=== PATIENT | female | born 1965 | race Caucasian/White ===

== ENCOUNTER → 2018-08-14 | Outpatient (CLI) | payer BC ==
--- NOTE | 2018-08-14 17:45 | PCVCIMAG ---
EXAM: NONINVASIVE ARTERIAL EXAMINATION OF BOTH LOWER EXTREMITIES INCLUDING PRE AND POST EXERCISE PRESSURE MEASUREMENTS AND DOPPLER WAVEFORMS INDICATION: Peripheral Arterial Disease. Leg pain. FINDINGS: Right Brachial: 115 mm Hg. Right Dorsalis Pedis: 117 mm Hg. Right Posterior Tibial: 135 mm Hg. Right MIRELA = 1.17. Left Brachial: 113 mm Hg. Left Dorsalis Pedis: 120 mm Hg. Left Posterior Tibial: 122 mm Hg. Left MIRELA = 1.06. Post Exercise: Right Brachial 123 mm Hg. Right Posterior Tibial: 140 mm Hg. Left Posterior Tibial: 133 mm Hg. Right MIRELA = 1.14. Left MIRELA = 1.08. IMPRESSION: No resting ischemia in the right lower extremity. No exercise induced ischemia in the right lower extremity. No resting ischemia in the left lower extremity. No exercise induced ischemia in the left lower extremity. LOC:[id number]
--- NOTE | 2018-08-14 17:46 | PCVCIMAG ---
EXAM: BILATERAL LOWER EXTREMITY ARTERIAL DUPLEX INDICATION: Peripheral Arterial Disease. Leg pain. FINDINGS: Right Leg: Satisfactory arterial waveforms throughout the common/profunda/superficial femoral, popliteal, anterior tibial, peroneal, and posterior tibial arteries. No flow limiting stenosis seen. Left Leg: Satisfactory arterial waveforms throughout the common/profunda/superficial femoral, popliteal, anterior tibial, peroneal, and posterior tibial arteries. No flow limiting stenosis seen. IMPRESSION: No flow limiting stenosis in the right lower extremity. No flow limiting stenosis in the left lower extremity. LOC:[id number]
--- NOTE | 2018-08-15 20:27 | PCVCIMAG ---
APPROVED REPORT Study performed: 08/14/2018 16:07:13 Exam: Stress Echocardiogram Indication: Dyspnea , Hyperlipidemia Patient Location: Echo lab Stress Nurse: Inés Curry RN Status: routine Ht: 5 ft 6 in HR: 77 bpm BP: 104/64 mmHg Rhythm: NSR Medical History Medical History: Hyperlipidemia Procedure The patient underwent an Exercise Stress Test using the Brady Protocol. Blood pressure, heart rate, and EKG were monitored. An Echocardiogram was performed by rvda master certified rv technician in four stages in quad fashion. At peak stress, four selected images were obtained and placed side by side with resting images for comparison. Stress Test Details Stress Test: Exercise stress testing was performed using a Brady protocol. HR Resting HR: 77 bpmMax Heart Rate (APMHR): 165 bpm Max HR Achieved: 162 bpmTarget HR (85% APMHR): 140 bpm % of APMHR: 98 Recovery HR: 89 bpm HR response to stress: Normal HR response to stress BP Resting BP: 104/64 mmHg Max BP: 150/70 mmHg Recovery BP: 132/62 mmHg BP response to stress: Normal blood pressure response to stress. ECG Resting ECG: Sinus Rhythm Stress ECG: Sinus Rhythm Recovery ECG: Sinus Rhythm Clinical Reason for Termination: Maximal effort Exercise duration: 6 min 38 sec Highest Stage Achieved: Stage 3: 3.4 mph at 14% grade. Exercise capacity: 8.90 METs Overall Exercise Capacity for Age: Normal Stress ECG Conclusion 1. subjectively negative for ischemia 2. electrocardiographically negative for ischemia 3. reduced functional capacity Pre-Stress Echo The resting Echocardiogram showed normal left ventricular contractility with an estimated Ejection Fraction of about 55-60%. Normal wall motion in all segments on baseline images. Post-Stress Echo The stress Echocardiogram showed normal left ventricular contractility with an estimated Ejection Fraction of about 60-65%. Normal augmentation of wall motion in all segments on post stress images. Clinical No clinical or ECG evidence for ischemia. Conclusion Clinical Response: Non-ischemic Exercise Capacity: Average Stress ECG Response: Non-ischemic Stress Echo Images: Non-ischemic The left ventricle is normal in size and wall thickness in both the rest and stress images. 1. low risk study 2. no exercise induced dysrhythmias Other Information Study Quality: Adequate <Conclusion> The left ventricle is normal in size and wall thickness in both the rest and stress images. 1. low risk study 2. no exercise induced dysrhythmias
== END | disposition home or self-care (01) ==
LOC: PCVCIMAG 13:53
PROVIDERS: ATTEND Internal Medicine
DX: I73.9 Peripheral vascular disease, unspecified (principal); M79.604 Pain in right leg; M79.605 Pain in left leg; R07.9 Chest pain, unspecified; E78.5 Hyperlipidemia, unspecified; R06.00 Dyspnea, unspecified; Z88.8 Allergy status to other drugs, medicaments and biological substances; Z87.891 Personal history of nicotine dependence
CPT/HCPCS: 93325; 93351; 93924; 93925